=== PATIENT | male | born 1945 | race Caucasian/White ===

== ENCOUNTER 2016-04-19 20:36 | Observation (INO) | payer OTHER ==
--- NOTE | 2016-04-19 21:04 | UCPHY ---
H & P Patient Type: New HPI/ROS: CHIEF COMPLAINT: Back pain, no trauma HISTORY OF PRESENT ILLNESS: 70-year-old male who presents reporting that at 7: 00 p.m. he developed severe left flank discomfort. Some nausea. Unable to get comfortable. Had a bowel movement without relief. No difficulty urinating. Noticed no blood in his urine. Was unable to fall asleep and so they presented to urgent care. However, after arriving to urgent care, at 9:00 p.m. the patient's pain has largely resolved. On my initial examination he is resting comfortably. He indicates the discomfort was in his left flank in his states he was very uncomfortable. Patient had otherwise been well. No vomiting or diarrhea, no dehydration, no cough, no anterior abdominal pain, no testicular pain. REVIEW OF SYSTEMS: Aside from elements discussed in the HPI, a comprehensive 10-point review of systems was reviewed and is negative. PAST MEDICAL HISTORY: Atrial fibrillation, on Pradaxa, hypertension SOCIAL HISTORY: Here with his . VITAL SIGNS Reviewed by me. GENERAL: Well-developed, well-nourished, resting comfortably. Reports no discomfort currently.. HEENT: Atraumatic. Eyes: No icterus, no injection. Mouth: moist mucous membranes. No erythema or lesions. Neck: supple with no adenopathy. LUNGS: Clear to auscultation bilaterally, no wheezes, rhonchi or rales. CARDIAC: Regular rate and rhythm, no rubs, murmurs or gallops. ABDOMEN: Soft, nontender, nondistended, bowel sounds normal. BACK: Mild left CVA discomfort. EXTREMITIES: No trauma. No edema. Range of motion is normal throughout. NEURO: Alert and oriented, grossly nonfocal. SKIN: Warm and dry, no rash. PSYCHIATRIC: Normal mentation, no agitation. - Family History Significant Family History: No pertinent family hx Constitutional: Initial Vital Signs Temperature (C) 36.5 C 04/19/16 21:14 Heart Rate 96 04/19/16 21:14 Respiratory Rate 16 04/19/16 21:14 Blood Pressure 133/83 H 04/19/16 21:14 O2 Sat (%) 95 04/19/16 21:14 O2 Delivery Mode Room Air Allergies/Adverse Reactions: acetaminophen [From Vicodin] Allergy (Verified 04/19/16 21:12) hydrocodone bitartrate [From Vicodin] Allergy (Verified 04/20/16 09:47) Home Medications: Medication Instructions Recorded Dabigatran Etexilate Mesyl 150 mg PO BID 04/19/16 [Pradaxa 150 MG (*)] Lisinopril [Zestril 40 mg (*)] 40 mg PO DAILY 04/19/16 metFORMIN HCL [Glucophage 500 mg 500 mg PO BIDMEAL 04/19/16 (*)] Amlodipine/Atorvastatin 1 each PO DAILY 04/20/16 [Amlodipine-Atorvast 5-10 mg] Phenazopyridine HCl [Pyridium] 200 mg PO TID #30 tab 04/20/16 Sildenafil Citrate [Viagra 50 MG 100 mg PO PRN PRN 04/20/16 (*)] oxyCODONE HCL/ACETAMINOPHEN 1 - 2 each PO Q6HRS PRN #20 tablet 04/20/16 [Oxycodone-Acetaminophen 5-325] Medical Decision Making - Diagnostics Imaging: Results: CT scan of the abdomen pelvis was obtained. I viewed the images independently on the PACS system. I discussed the results of the study with the radiologist. Impression: 5 mm stone at the proximal UVJ on the left with moderate hydronephrosis and stranding around the kidney. Cyst in the left kidney which will require follow-up. Please see the full radiology report. ED Course/Re-evaluation: 70-year-old male presenting with left flank pain. Patient had been in moderate distress at home according to himself and his , but his pain is resolved on arrival to the emergency department. Patient's urinalysis was positive for 3+ blood. He did undergo CT scanning which demonstrates a 5 mm stone lodged at the UPJ. Accompanied by hydronephrosis and stranding. On return from CT scanning, the patient abruptly developed acute pain. He is quite uncomfortable rating his pain 7 on a 10. He received Dilaudid 1 mg. IV fluids were hung. Patient received Flomax 0.4 mg. Patient had some improvement in his pain. However he required additional Dilaudid. Given the size of the stone as well as the limitations here at the urgent care ( urgent care is closing), patient was admitted to the hospitalist service at [facility]. Patient and uncomfortable with discharge to home. His course was discussed with Dr. Wayne, who will see him at [facility] in morning. His course was discussed with the hospitalist service, Dr. Nisha Ceja. Differential Diagnosis: Differential diagnosis of the patient's flank pain was considered including but not limited to musculoskeletal causes, kidney stone, pyelonephritis, shingles, and intra-abdominal causes such as diverticulitis. - Data Points Laboratory Results: Laboratory Results 04/19/16 21:55 04/19/16 21:55 Medications Given: Discontinued Medications Hydromorphone HCl (Dilaudid) 1 mg IVP EDNOW ONE Stop: 04/19/16 22:19 Last Admin: 04/19/16 22:27 Dose: 1 mg Hydromorphone HCl (Dilaudid) 1 mg IVP EDNOW ONE Stop: 04/19/16 23:01 Last Admin: 04/19/16 23:10 Dose: 1 mg Hydromorphone HCl (Dilaudid) 0.2 - 0.4 mg IVP Q4HRS PRN PRN Reason: Pain, Severe Unable to Take PO Stop: 04/30/16 01:21 Last Admin: 04/20/16 10:15 Dose: 0.2 mg Hydromorphone HCl (Dilaudid) 2 mg PO Q4HRS PRN PRN Reason: Pain, Severe Able to Take PO Stop: 04/30/16 01:21 Last Admin: 04/20/16 01:39 Dose: 2 mg Sodium Chloride (Ns) 1,000 mls @ 0 mls/hr IV ONCE ONE PRN Reason: Wide Open Stop: 04/19/16 21:33 Last Admin: 04/19/16 22:00 Dose: 1,000 mls Sodium Chloride (Ns) 1,000 mls @ 125 mls/hr IV CONT KEITH Stop: 10/17/16 01:29 Last Admin: 04/21/16 03:00 Dose: 1,000 mls Levofloxacin/Dextrose (Levaquin 500 Mg (Premix)) 100 mls @ 100 mls/hr IV ONCALL ONE PRN Reason: Protocol Stop: 04/20/16 16:47 Last Admin: 04/20/16 19:43 Dose: Not Given Ondansetron HCl (Zofran) 4 mg IVP EDNOW ONE Stop: 04/19/16 22:19 Last Admin: 04/19/16 22:28 Dose: 4 mg Phenazopyridine HCl (Pyridium) 200 mg PO TID KEITH Stop: 10/17/16 18:14 Last Admin: 04/21/16 10:34 Dose: 200 mg Tamsulosin HCl (Flomax) 0.4 mg PO EDNOW ONE Stop: 04/19/16 22:35 Last Admin: 04/19/16 23:00 Dose: 0.4 mg Temazepam (Restoril) 15 mg PO HS PRN PRN Reason: Sleep/Insomnia Stop: 10/17/16 01:21 Last Admin: 04/20/16 20:02 Dose: 15 mg Departure - Departure Disposition: [facility] Inpatient Acute Clinical Impression: Flank pain, acute, Kidney stone on left side, Hydronephrosis of left kidney Condition: Good - PQRS PQRS Measurement: 134: Depression screening and followup, PRIME MD-PHQ2 (12 years and older) Over the last 2 weeks, how often have you been bothered by any of the following problems? 1. Feeling down, depressed, or hopeless? 2. Little interest or pleasure in doing things? Patient answered no to both 1 and 2. 130: Documentation of medications. Reviewed all patient medications, doses, route and frequency. 226: Do you smoke? No. 47: 65 and older: Advanced care planning. Patient designates surrogate decision maker as spouse 51: 18 years old and older with diagnosis of COPD, spirometry performance. Patient has no history of COPD 52: 18 years old and older with COPD and symptoms of COPD or FEV1<60% predicted prescribed a B Agonist. Patient has no history of COPD
[2016-04-19 21:27] LABS: COLOR YELLOW; LEUKOCYTE ESTERASE,URINE NEGATIVE (NEGATIVE); NITRITE,URINE NEGATIVE (NEGATIVE); PH,URINE 5.5 (5.0-7.5)
[2016-04-19] MEDS ORDERED: NS 1,000 ML IV ONE (21:32)
[2016-04-19 21:39] LABS: BACTERIA 1+ /hpf (NONE SEEN); MUCUS 1+ /lpf (NONE-1+); RBC,URINE 50-182 /hpf (0-3)
[2016-04-19 22:03] LABS: % IMMATURE GRANULYOCYTES 0.3 % (0.0-1.1); ABSOLUTE IMMATURE GRANULOCYTES 0.03 10^3/uL (0.00-0.10); ADD DIFF? NO; ADD MORPH? NO; ADD SCAN? NO; ATYPICAL LYMPHOCYTE FLAG 0 (0-99); FRAGMENT RBC FLAG 0 (0-99); HEMATOCRIT 40.5 % (40.0-51.0); HEMOGLOBIN 13.5 g/dL (13.7-17.5); LEFT SHIFT FLG 0 (0-99); LIPEMIA HEMOLYSIS FLAG 80 (0-99); MEAN CELL HEMOGLOBIN 28.5 pg (27.9-34.1); MEAN CELL HEMOGLOBIN CONCENTR. 33.3 g/dL (32.4-36.7); MEAN CELL VOLUME 85.6 fL (81.5-99.8); MEAN PLATELET VOLUME 10.3 fL (8.7-11.7); PLATELET CLUMPS FLAG 0 (0-99); PLATELET COUNT 217 10^3/uL (150-400); RED BLOOD CELL COUNT 4.73 10^6/uL (4.40-6.38)
[2016-04-19] MEDS ORDERED: ONDANSETRON 4 MG/2 ML VIAL IVP ONE (22:18)
[2016-04-19] MEDS ORDERED: HYDROmorphONE/DILAUDID 1 MG/ML SYR IVP ONE ×2 (22:18→23:00)
[2016-04-19] MEDS ORDERED: ONDANSETRON 4 MG/2 ML VIAL ONE (22:19)
[2016-04-19] MEDS ORDERED: HYDROmorphONE/DILAUDID 1 MG/ML SYR ONE (22:19)
[2016-04-19] MEDS ORDERED: TAMSULOSIN HCL 0.4 MG CAP PO ONE (22:34)
[2016-04-19 22:35] LABS: CALCIUM 9.2 mg/dL (8.5-10.4); CREATININE 1.4 mg/dL (0.7-1.3)
--- NOTE | 2016-04-19 22:35 | CT ---
CT Abdomen and Pelvis (Without Contrast) at 2205 hours History: Left flank pain. Technique: Spiral images were acquired from the upper abdomen through the pelvis without intravenous or oral contrast which limits the study. Dose reduction techniques were utilized. Findings: Abdomen: Moderate to severe left hydronephrosis with perinephric stranding, dilated renal pelvis and calyces secondary to a 5 mm obstructing calculus in the proximal left ureter at the L3 vertebral body level, image 163 of series 3. No additional left nephrolithiasis. Possible cyst or cystic lesion upp er pole left kidney measuring 3 cm. Right kidney demonstrates no nephrolithiasis. Incidental 2 mm gal lstone. Possible additional 3 cm cyst in lower pole left kidney or cystic lesion. Follow-up renal ult rasound is recommended. Moderate atherosclerotic aorta and iliac arteries without aneurysm. No hepatosplenomegaly or ascites. No peripancreatic fluid. No bowel obstruction. Pelvis: No additional bladder calculi. Prostate calcifications noted. Degenerative disk changes in t he lower thoracic and lumbar spine. Impression: 1. Moderate to severe left hydronephrosis secondary to proximal left ureteral 5 mm obstructing calcul us. 2. No right nephrolithiasis or right hydronephrosis. 3. Possible renal cysts or cystic lesions in the upper and lower poles of the left kidney. Recommend follow-up renal ultrasound. 4. Atherosclerotic aorta without aneurysm. 5. Incidental cholelithiasis. Attention: This CT examination is specifically designed to evaluate patients who are clinically susp ected of having acute obstructive uropathy. This examination does not use radiographic contrast, and as such, provides only a limited evaluation of the abdomen, pelvis and retroperitoneum. If there is further clinical suspicion for pathological conditions other than obstructive uropathy, a complete C T evaluation of the abdomen and pelvis utilizing intravenous, oral, and rectal contrast should be con sidered.
[2016-04-19 22:36] LABS: POTASSIUM 3.6 mEq/L (3.3-5.0)
--- NOTE | 2016-04-19 23:18 | CPEKG ---
Heart Rate: 109 RR Interval: 550 QRSD Interval: 88 QT Interval: 352 QTC Interval: 475 QRS [place]: -37 T Wave [place]: 62 EKG Severity - ABNORMAL ECG - EKG Impression: ATRIAL FIBRILLATION, V-RATE 82-147 EKG Impression: LEFT AXIS DEVIATION Electronically Signed By: Khari Greenfield 20-Apr-2016 10:51:35
[2016-04-20] MEDS ORDERED: TEMAZEPAM 15 MG CAP PO PRN (01:22)
[2016-04-20] MEDS ORDERED: ONDANSETRON 4 MG/2 ML VIAL IVP PRN (01:22)
[2016-04-20] MEDS ORDERED: ONDANSETRON DISINTEGRATING 4 MG TAB PO PRN (01:22)
[2016-04-20] MEDS ORDERED: HYDROmorphONE/DILAUDID 2 MG TAB PO PRN (01:22)
[2016-04-20] MEDS: NS 1,000 ML IV SCH ×3 (01:39→19:41)
--- NOTE | 2016-04-20 03:13 | PDGENHP ---
History and Physical - Chief Complaint L flank pain - History of Present Illness Patient is a 70-year-old male with history of atrial fibrillation on systemic anticoagulation, pre diabetes and hypertension who presents to the ED complaining of sudden onset left back pain. Patient states symptoms started around 6:30 p.m. after dinner, described as a sharp, throbbing type pain, 5/10 in intensity initially, located in his lower left back radiating into the left flank. He denies any associated urinary symptoms, denies burning, urgency or frequency with urination also denies any obvious signs of urinary bleeding. Over the course of the evening the pain began to intensify in waves, reaching up to 9 and 10 in intensity. Given this he decided to go to the urgent care for further evaluation. On arrival to the Urgent Care patient was afebrile and hemodynamically stable. Labs revealed mild leukocytosis, mild elevation in BUN and creatinine. UA revealed microhematuria. CT abdomen pelvis was then obtained and reviewed and revealed moderate to severe left hydronephrosis with a 5 mm obstructing stone in the left ureter. He was then transferred to [facility] for admission. History Information - Allergies/Home Medication List Allergies/Adverse Reactions: acetaminophen [From Vicodin] Allergy (Verified 04/19/16 21:12) hydrocodone bitartrate [From Vicodin] Allergy (Verified 04/19/16 21:12) Home Medications: Lisinopril 04/19/16 [Last Taken Unknown] Metformin HCl 04/19/16 [Last Taken Unknown] Pradaxa 04/19/16 [Last Taken Unknown] I have personally reviewed and updated: family history, medical history, social history, surgical history - Past Medical History Additional medical history: Atrial fibrillation on Pradaxa. hypertension. pre diabetes on metformin - Surgical History Additional surgical history: right knee meniscus repair - Family History Positive for: diabetes type II - Social History Smoking Status: Never smoked Alcohol Use: Occasionally Drug Use: None Additional social history: patient is retired, lives with . Is independent in all ADLs. Review of Systems ROS: 10pt was reviewed & negative except for what was stated in HPI & below Physical Exam Temp Pulse Resp BP Pulse Ox 36.6 C 118 H 16 139/89 H 95 04/20/16 01:07 04/20/16 01:07 04/20/16 01:07 04/20/16 01:07 04/20/16 01:07 Constitutional: no apparent distress, appears nourished, not in pain Eyes: PERRL, anicteric sclera, EOMI Ears, Nose, Mouth, Throat: moist mucous membranes, hearing normal, ears appear normal, no oral mucosal ulcers Cardiovascular: no murmur, rub, or gallop, irregularly irregular, pulses symmetric bilaterally, No JVD, No edema Peripheral Pulses: 2+: dorsalis-pedis (R), dorsalis-pedis (L) Respiratory: no respiratory distress, no rales or rhonchi, clear to auscultation Gastrointestinal: normoactive bowel sounds, soft, non-tender abdomen, no palpable masses, No tenderness, No guarding, No rebound, No distension Genitourinary: no bladder fullness, no bladder tenderness, other ( No CVA tenderness) Skin: warm, normal color, no rashes or abrasions, no fluctuance, No mottled Musculoskeletal: full muscle strength, no muscle tenderness, normal joint ROM, no joint effusions Neurologic: AAOx3, sensation intact bilaterally, CN II-XII Intact, No weakness, No numbness Psychiatric: interacting appropriately, not anxious, not encephalopathic, thought process linear Lab Data & Imaging Review 04/19/16 21:55 04/19/16 21:55 WBC 11.46 10^3/uL (3.80-9.50) H 04/19/16 21:55 RBC 4.73 10^6/uL (4.40-6.38) 04/19/16 21:55 Hgb 13.5 g/dL (13.7-17.5) L 04/19/16 21:55 Hct 40.5 % (40.0-51.0) 04/19/16 21:55 MCV 85.6 fL (81.5-99.8) 04/19/16 21:55 MCH 28.5 pg (27.9-34.1) 04/19/16 21:55 MCHC 33.3 g/dL (32.4-36.7) 04/19/16 21:55 RDW 13.0 % (11.5-15.2) 04/19/16 21:55 Plt Count 217 10^3/uL (150-400) 04/19/16 21:55 MPV 10.3 fL (8.7-11.7) 04/19/16 21:55 Neut % (Auto) 83.7 % (39.3-74.2) H 04/19/16 21:55 Lymph % (Auto) 8.2 % (15.0-45.0) L 04/19/16 21:55 [place] % (Auto) 5.1 % (4.5-13.0) 04/19/16 21:55 Eos % (Auto) 2.4 % (0.6-7.6) 04/19/16 21:55 Baso % (Auto) 0.3 % (0.3-1.7) 04/19/16 21:55 Nucleat RBC Rel Count 0.0 % (0.0-0.2) 04/19/16 21:55 Absolute Neuts (auto) 9.61 10^3/uL (1.70-6.50) H 04/19/16 21:55 Absolute Lymphs (auto) 0.94 10^3/uL (1.00-3.00) L 04/19/16 21:55 Absolute Monos (auto) 0.58 10^3/uL (0.30-0.80) 04/19/16 21:55 Absolute Eos (auto) 0.27 10^3/uL (0.03-0.40) 04/19/16 21:55 Absolute Basos (auto) 0.03 10^3/uL (0.02-0.10) 04/19/16 21:55 Absolute Nucleated RBC 0.00 10^3/uL (0-0.01) 04/19/16 21:55 Immature Gran % 0.3 % (0.0-1.1) 04/19/16 21:55 Immature Gran # 0.03 10^3/uL (0.00-0.10) 04/19/16 21:55 Sodium 144 mEq/L (134-144) 04/19/16 21:55 Potassium 3.6 mEq/L (3.3-5.0) 04/19/16 21:55 Chloride 106 mEq/L (97-110) 04/19/16 21:55 Carbon Dioxide 25 mEq/l (22-31) 04/19/16 21:55 Anion Gap 13 mEq/L (8-16) 04/19/16 21:55 BUN 25 mg/dL (7-23) H 04/19/16 21:55 Creatinine 1.4 mg/dL (0.7-1.3) H 04/19/16 21:55 Estimated GFR 50 04/19/16 21:55 Glucose 146 mg/dL (70-100) H 04/19/16 21:55 Calcium 9.2 mg/dL (8.5-10.4) 04/19/16 21:55 Urine Color YELLOW 04/19/16 21:15 Urine Appearance CLOUDY 04/19/16 21:15 Urine pH 5.5 (5.0-7.5) 04/19/16 21:15 Ur Specific [place] 1.025 (1.002-1.030) 04/19/16 21:15 Urine Protein TRACE (NEGATIVE) H 04/19/16 21:15 Urine Ketones 1+ (NEGATIVE) H 04/19/16 21:15 Urine Blood 3+ (NEGATIVE) H 04/19/16 21:15 Urine Nitrate NEGATIVE (NEGATIVE) 04/19/16 21:15 Urine Bilirubin NEGATIVE (NEGATIVE) 04/19/16 21:15 Urine Urobilinogen 0.2 EU (0.2-1.0) 04/19/16 21:15 Ur Leukocyte Esterase NEGATIVE (NEGATIVE) 04/19/16 21:15 Urine RBC 50-182 /hpf (0-3) H 04/19/16 21:15 Urine WBC 1-3 /hpf (0-3) 04/19/16 21:15 Ur Epithelial Cells NONE SEEN /lpf (NONE-1+) 04/19/16 21:15 Urine Bacteria 1+ /hpf (NONE SEEN) H 04/19/16 21:15 Urine Mucus 1+ /lpf (NONE-1+) 04/19/16 21:15 Urine Glucose NEGATIVE (NEGATIVE) 04/19/16 21:15 Visualized and Interpreted imaging results: Yes Interpretation: CT abd/pelvis: mod-severe L hydronephrosis with 5 mm L ureteral stone Visualized and Interpreted EKG results: Yes EKG Interpretation: Positive for: other ( AFib with no obvious ST /T-wave changes) Assessment & Plan Assessment: patient is a 70-year-old male with history of atrial fibrillation, hypertension and prediabetes who presents to the urgent care complaining of acute onset left flank pain. CT reveals obstructing 5 mm left ureteral stone with associated left moderate to severe hydronephrosis. Plan: # nephrolithiasis with obstructive nephropathy the patient denies any previous history of nephrolithiasis. CT scan reveals associated hydronephrosis. No obvious signs of urinary tract infection. Will continue aggressive IV hydration, consult Urology and continue pain management. No indication for antibiotics at this time. # elevated BUN/Cr BUN/CR were wnl in 01/2016, so likely acute kidney injury related to obstructive pathology (post-renal). Will give aggressive IVF hydration and monitor renal function. If no improvement, may need intervention for stone removal. # chronic Hypertension BP stable, will hold ACEI in setting of [place] for now and observe BP. # pre-DM2 Hold metformin in setting of [place] # chronic atrial fibrillation HR mostly controlled on presentation. Patient does not appear to be on any rate controlling meds. Will monitor and add b-murtaza if needed. # dispo: admit under observation status # full code
[2016-04-20 05:17] LABS: % IMMATURE GRANULYOCYTES 0.3 % (0.0-1.1); ABSOLUTE IMMATURE GRANULOCYTES 0.03 10^3/uL (0.00-0.10); ADD DIFF? NO; ADD MORPH? NO; ADD SCAN? NO; ATYPICAL LYMPHOCYTE FLAG 0 (0-99); FRAGMENT RBC FLAG 0 (0-99); HEMATOCRIT 36.8 % (40.0-51.0); LEFT SHIFT FLG 10 (0-99); LIPEMIA HEMOLYSIS FLAG 80 (0-99); MEAN CELL HEMOGLOBIN 28.6 pg (27.9-34.1); MEAN CELL HEMOGLOBIN CONCENTR. 32.6 g/dL (32.4-36.7); MEAN CELL VOLUME 87.6 fL (81.5-99.8); MEAN PLATELET VOLUME 10.5 fL (8.7-11.7); PLATELET CLUMPS FLAG 0 (0-99); PLATELET COUNT 180 10^3/uL (150-400); RED CELL DISTRIBUTION WIDTH 12.9 % (11.5-15.2)
[2016-04-20 05:38] LABS: ANION GAP 9 mEq/L (8-16); CALCIUM 8.2 mg/dL (8.5-10.4); CARBON DIOXIDE 23 mEq/l (22-31); CHLORIDE 111 mEq/L (97-110); CREATININE 1.4 mg/dL (0.7-1.3); GLOMERULAR FILTRATION RATE 50; GLUCOSE 114 mg/dL (70-100); POTASSIUM 4.2 mEq/L (3.5-5.2); SODIUM 143 mEq/L (134-144)
[2016-04-20] MEDS: HYDROmorphONE/DILAUDID 1 MG/ML SYR IVP PRN ×2 (10:06→10:15)
--- NOTE | 2016-04-20 14:02 | HOSPPROG ---
Hospitalist Progress Note Assessment/Plan: 70-year-old with a history of AFib and pre diabetes comes in with flank pain and found to have a 5 mm stone with severe hydronephrosis. Dr. mendoza to take him to surgery this afternoon. Currently admitted for pain control requiring IV pain meds. # nephrolithiasis: Associated with severe hydronephrosis. Appreciate Urology consult he may need to spend the night post surgery depending on the time finishes surgery. # pre diabetes. Will hold metformin and resume it once he is discharged # atrial fibrillation on anticoagulation. Will resume Pradaxa at discharge if okay with Urology # acute renal failure secondary to hydronephrosis will continue to monitor while patient is in hospital would like to get an additional BMP tomorrow after surgery. # hypertension: Patient NPO for surgery blood pressures are well controlled will hold until able to take p.o.. Subjective: Patient having adequate pain control with IV medications Objective: Vital Signs Temp Pulse Resp BP Pulse Ox 36.9 C 101 H 14 116/73 95 04/20/16 12:00 04/20/16 12:00 04/20/16 12:00 04/20/16 12:00 04/20/16 12:00 Laboratory Results 04/20/16 04:25 04/20/16 04:25 04/19/16 04/20/16 04/21/16 05:59 05:59 05:59 Intake Total 1500 Balance 1500 - Physical Exam Constitutional: uncomfortable Ears, Nose, Mouth, Throat: moist mucous membranes Cardiovascular: regular rate and rhythym, no murmur, rub, or gallop Respiratory: no respiratory distress, no rales or rhonchi, clear to auscultation Gastrointestinal: soft, non-tender abdomen, No guarding Genitourinary: no bladder fullness Skin: warm ICD10 Worksheet Patient Problems: Problems Problem Status Diagnosed Flank pain, acute Acute Hydronephrosis of left kidney Acute Kidney stone on left side Acute
[2016-04-20] MEDS ORDERED: LIDOCAINE 2% JELLY 20 ML (UROJECT) ONE (15:06)
[2016-04-20] MEDS ORDERED: IOPAMIDOL (ISOVUE-M 300) 15 ML VIAL IV ONE (15:07)
[2016-04-20] MEDS ORDERED: levOFLOXACIN 500 MG/DEXTROSE 100 ML IV ONE (15:48)
[2016-04-20] MEDS ORDERED: PROPOFOL 200 MG/20 ML VIAL ONE ×2 (15:57)
[2016-04-20] MEDS ORDERED: fentaNYL 100 MCG/2 ML INJ ONE (15:57)
[2016-04-20] MEDS ORDERED: MIDAZOLAM 2 MG/2 ML VIAL ONE (15:58)
[2016-04-20] MEDS ORDERED: LIDOCAINE 2% 100 MG/5 ML SYR IVP ONE (16:00)
[2016-04-20] MEDS ORDERED: ROCURONIUM 50 MG/5 ML VIAL ONE (16:00)
[2016-04-20] MEDS ORDERED: VASOPRESSIN 20 UNIT/ML VIAL ONE (16:36)
[2016-04-20] MEDS ORDERED: ONDANSETRON 4 MG/2 ML VIAL ONE (16:50)
[2016-04-20] MEDS ORDERED: DEXAMETHASONE 4 MG/ML VIAL ONE (16:50)
[2016-04-20] MEDS ORDERED: SUGAMMADEX SODIUM 200 MG/2 ML VIAL IVP ONE (17:13)
--- NOTE | 2016-04-20 17:51 | POSTOPPROG ---
Post Op Note Date of Operation: 04/20/16 Surgeon: Earnest Wayne (# [id number]) Anesthesia: LMA Pre-op Diagnosis: Left proximal ureteral calculus Post-op Diagnosis: Left proximal ureteral calculus Procedure: Cysto, Left RGP, ureteroscopy/nephroscopy w/ laser, stent placement Findings: See op note Inf/Abcess present in the surg proc area at time of surgery?: No EBL: Minimal (< 10 cc) Complications: None Drains: Other (4.7 Fr. x 24 cm left ureteral stent) Specimen(s): None Text Box - Additional Text Additional Text: He may be discharged whenever deemed appropriate by the hospitalist service. I have placed Rx's on his chart for oxycodone and Pyridium. Please have him hold his Pradaxa for 48 hours. He should FU in my office in 2 weeks for ureteral stent removal.
[2016-04-20] MEDS ORDERED: PHENAZOPYRIDINE HCL 200 MG TAB ONE (18:13)
--- NOTE | 2016-04-20 18:51 | DX ---
Intraoperative fluoroscopy History: Left ureteroscopy. Comparison: CT abdomen and pelvis of April 19, 2016. Findings: A single intraoperative film shows a double-J ureteral stent in expected position. Extravas ation of contrast is noted, compatible with forniceal rupture, accounting for the perinephric fluid s een on CT. Mild hydronephrosis is present. Fluoro time: 1.2 seconds. Dose: 10.4 mGy. Impression: Intraoperative fluoroscopy as above.
[2016-04-20] MEDS: PHENAZOPYRIDINE HCL 200 MG TAB PO SCH ×2 (19:44→21:44)
[2016-04-20 22:03] VITALS: RESP 18
[2016-04-21] MEDS: NS 1,000 ML IV SCH (03:00)
--- NOTE | 2016-04-21 04:30 | GOP ---
[f rep st] OPERATIVE REPORT DATE OF OPERATION: 04/20/2016 SURGEON: Earnest Wayne MD ANESTHESIA: Laryngeal mask. PREOPERATIVE DIAGNOSIS: Symptomatic left proximal ureteral calculus. POSTOPERATIVE DIAGNOSIS: Symptomatic left proximal ureteral calculus. PROCEDURE PERFORMED: 1. Cystourethroscopy, left retrograde pyelography. 2. Left ureteroscopy and nephroscopy with holmium laser calculus lithotripsy. 3. Left ureteral stent placement (4.7-Ecuadorean by 24 cm). FINDINGS: Left proximal ureteral calculus which was treated as noted above with holmium laser lithot ripsy. SPECIMENS: None. ESTIMATED BLOOD LOSS: Minimal. INDICATIONS: This gentleman was admitted last night with symptoms related to an obstructing left pro ximal ureteral calculus. He has been unable to pass the calculus spontaneously. It was recommended that he undergo intraoperative management. The indications for the procedures as well as potential r isks and complications were discussed with the patient preoperatively. He appeared to understand, hi s questions were answered, and he wished to proceed. Written informed surgical consent was thereafte r obtained. DESCRIPTION OF PROCEDURE: The patient was brought to the operating room, administered laryngeal mask anesthesia. He was carefully placed in the dorsal lithotomy position on the cystoscopic table. The genital area was sterilely prepped with Betadine scrub and paint, then draped in usual sterile fashi on. Cystoscopy was performed with 30-degree and 70-degree lenses through a 22-Ecuadorean sheath. The an terior urethra was unremarkable. Posterior urethra revealed mild to moderate BPH. Examination of bl adder revealed a mildly trabeculated pattern. Ureteral orifices were normal in regard to shape and p osition along the trigone. There was no evidence of tumors. No foreign body seen within the bladder . A 5-Ecuadorean open-ended ureteral catheter was used to perform retrograde pyelography on the left side. This revealed a filling defect in the left proximal ureter that was consistent with the position of the calculus seen on preoperative imaging. There was moderate proximal hydronephrosis and hydrourete r. I was able to advance the hydrophilic Sensor 0.035 guidewire up the left ureter until it was seen within the renal collecting system fluoroscopically. Upon passage of the guidewire into the renal c ollecting system, it appeared the calculus migrated proximally into the renal collecting system as we ll. I then dilated the entire length of the ureter with 2 separate inflations and deflations of a 10 cm balloon by maintaining a pressure of 15 atmospheres for about 3 minutes on each occasion. The ba lloon dilator and cystoscope were then removed while keeping the guidewire in place. Semi-rigid uret eroscopy was performed alongside the guidewire. I advanced the ureteroscope up to the ureteropelvic junction. No calculus was seen. I then decided to proceed with flexible ureteroscopy. A super stif f 0.035 guidewire was passed through the ureteroscope and advanced into the renal collecting system. The ureter just the ureteral scope was withdrawn, thereby keeping both guidewires in place. Under active fluoroscopy, a 55 cm hydrophilic ureteral access sheath was passed over the superstiff w adelina. The inner obturator and superstiff wire were then removed while keeping the outer ureteral acce ss sheath and secondary guidewire in place. A flexible ureteroscopy was performed through the ureter al access sheath. The calculus was identified within an upper pole calyx. A 200 micron holmium lase r fiber was used to fragment the calculus into minute pieces. None of these were extracted. The ure teroscope and ureteral access sheath were then removed in tandem while keeping the guidewire in place . There was minimal trauma to the ureter as a result of the operative process. The cystoscope was b ack loaded over the guidewire and a 4.7-Ecuadorean by 24 cm hydrophilic ureteral stent advanced over the guidewire until it was properly positioned and seen fluoroscopically in the kidney and cystoscopicall y in the bladder. The bladder was then drained of all return which was light pink. The instruments were removed and 20 cc of 2% lidocaine injected transurethrally for postoperative analgesic purposes. The patient was then awakened, transferred to his bed, then taken to the recovery room. He tolerat ed the procedure well overall. COMPLICATIONS: None. DISPOSITION: He was transferred to the recovery in stable condition. He may be discharged once deem ed appropriate by the hospital service, likely tomorrow morning, with instructions to return to [facility] in approximately 2 weeks for ureteral stent removal. He will be discharged on oxycodone p.r.n. and Pyridium 200 mg 3 times daily. He should also have his Pradaxa held for about 48 hours following discharge, likely today. /[id number]/MODL
[2016-04-21 07:49] LABS: ANION GAP 13 mEq/L (8-16); CALCIUM 8.8 mg/dL (8.5-10.4); CARBON DIOXIDE 21 mEq/l (22-31); CHLORIDE 110 mEq/L (97-110); CREATININE 1.4 mg/dL (0.7-1.3); GLOMERULAR FILTRATION RATE 50; GLUCOSE 122 mg/dL (70-100); POTASSIUM 4.5 mEq/L (3.5-5.2); SODIUM 144 mEq/L (134-144)
[2016-04-21 08:34] VITALS: TEMP 97.5
[2016-04-21] MEDS: PHENAZOPYRIDINE HCL 200 MG TAB PO SCH (10:34)
[2016-04-21 10:57] VITALS: BP 147/93; PULSE 72; O2SAT 92
--- NOTE | 2016-04-21 11:41 | GDS ---
[f rep st] DISCHARGE SUMMARY DIAGNOSES: 1. Ureteral stone. 2. Atrial fibrillation, on Pradaxa. 3. Hypertension. 4. Pre-diabetes, on metformin. CONSULTATIONS: Dr. Jarrell Wayne, called from the emergency department on Wednesday. PROCEDURES DONE: 1. Abdominal pelvic CT scan with a left proximal ureteral calculus with severe hydronephrosis. 2. Cystoscopy left RGP ureteroscopy, nephroscopy with laser, stent placement. HOSPITAL COURSE: The patient is a 70-year-old with a history of atrial fibrillation on anticoagulation, who comes in with sudden onset left back pain. He went to the emergency department and had a CT done which revealed a 5 mm obstructing stone in the left proximal ureter with severe left hydronephrosis. 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 He went to surgery on the with good result and resolution of his pain. He does complain of some mild urethral pain at the time of discharge. CONDITION ON DISCHARGE: Good. Vital signs are stable. Blood pressure is good. DISCHARGE MEDICATIONS: He will resume his home medications. He is to hold his Pradaxa for 48 hours. He was given some oxycodone and Pyridium as needed by Dr. Wayne. FOLLOWUP INSTRUCTIONS: He should follow up with Dr. Wayne in 2 weeks for stent removal. Total time spent with patient 35 minutes_ . /[id number]/MODL MTDD
== END 2016-04-21 11:51 | disposition home or self-care (01) ==
LOC: CED 20:36 → CEDHOLD 04-20 00:10 → F3N 04-20 00:53 → F1N 04-20 15:25
PROVIDERS: ADMIT Internal Medicine; ATTEND Internal Medicine
DX: N13.2 Hydronephrosis with renal and ureteral calculous obstruction (principal); I48.2 Chronic atrial fibrillation; N28.1 Cyst of kidney, acquired; N40.0 Benign prostatic hyperplasia without lower urinary tract symptoms; I10 Essential (primary) hypertension; R73.03 Prediabetes; N17.9 Acute kidney failure, unspecified; G47.33 Obstructive sleep apnea (adult) (pediatric); E66.9 Obesity, unspecified; I70.0 Atherosclerosis of aorta; K80.20 Calculus of gallbladder without cholecystitis without obstruction; Z79.01 Long term (current) use of anticoagulants
CPT/HCPCS: 52356; 74176; 76001; 93005; 96361; 96374; 96375; 96376; C1726; C1758; C1769; C1894; C2625; G0378; G0463; J1100; J1170; J1956; J2001; J2250; J2405; J2704; J3010; Q9967; 80048-PO; 81003-PO; 81015-PO; 85025-PO